=== PATIENT | female | born 1950 | race Hispanic/Latino ===

== ENCOUNTER 2020-06-05 10:45 | Emergency (ER) | payer MEDICARE, OTHER ==
[~2020-06-05] VITALS: Ht 160 cm; Wt 74.8 kg
[2020-06-05] MEDS ORDERED: KETOROLAC TROMETHAMINE 30 MG/ML VIAL IM STA (11:08)
[2020-06-05] MEDS ORDERED: DEXAMETHASONE SOD PHOS 10 MG/1 ML VIAL IM ONE (11:15)
[2020-06-05] MEDS ORDERED: HYDROCODONE/APAP 5MG-325MG TAB PO ONE (11:15)
[2020-06-05] MEDS ORDERED: LIDOCAINE 4% PATCH TP SCH (11:15)
--- OUTSIDE RECORDS SUMMARY | 2020-06-05 11:51 | XMS REPORT | Continuity of Care Document ---
Author Author [facility] t Organization [facility] Address [address] [place] [address] Phone Unavailable Care Team Providers Care Expert Witness Name Role Phone Unavailable Unavailable Payers Payer Name Policy Type Policy Number Effective Date Expiration Date S ource Problems This patient has no known problems. Allergies, Adverse Reactions, Alerts Allergy Name Allergy Type Status Severity Reaction(s) Onset Date Inacti ve Date Treating Clinician Comments Source No Known Allergies DA Active U 2018-09-07 00:00:00 [facility] No Known Contrast Allergies DA Active U 2007-08-31 00:00: 00 [facility] No Known Drug Allergies DA Active U 2007-08-31 00:00:00 [facility] No Known Food Allergies DA Active U 2007-08-31 00:00:00 [facility] No Known Other Allergies DA Active U 2007-08-31 00:00:00 [facility] No Known Drug Intolerances DA Active U 2001-12-20 00:00:0 0 [facility] Medications This patient has no known medications. Procedures This patient has no known procedures. Results Test Description Test Time Test Comments Results Result Comments Source GLUBED 2018-09-09 12:07:00 Test Item GLUBED (test code = GLUBED) 175 mg/dL 74-106 H [facility] [id number] 10:32:00* Test Item Value Reference Range Interpretation Comments GLUBED (test code = GLUBED) 169 mg/dL 74-106 H [facility] [id number] 23:27:00* Test Item Value Reference Range Interpretation Comments GLUBED (test code = GLUBED) 145 mg/dL 74-106 H [facility] - MRI BRAIN W/O [id number] 22:29:00 FAX: Khari Chow MD [place]: St: ADM Name: Rita GERSONHARMAN FLORES [facility] : [birth year] Age/S: 67/F [facility] Unit #: [id number] Loc: [address] [address] Phys: Khari Chow MD Acct: [id number] Dis Date: Status: ADM IN PHONE #: [phone] Exam Date: 09/08/2018 1856 FAX #: [phone] Reason: severe L temporal headache; neg esr crp EXAMS: CPT CODE: [id number] MRI BRAIN W/O CONTRAST 89924 REASON FOR EXAM: severe L temporal headache; neg esr crp Exam Order Date: 09/08/2018 2:45 PM Attending M.D.: Khari Chow MD Procedure: - MRI BRAIN W/O CONTRAST Comparison: Noncontrast CT scan of the brain September 07, 2018 FINDINGS: Axial, sagittal, and coronal images of the head were obtained using T1, T2 weighted, inversion recovery, diffusion weighted, and gradient echo sequences. No IV gadolinium was given. The sagittal images show normal pituitary, cerebellum, and brain stem. No evidence of suprasellar mass. The axial T2, inversion recovery, and gradient echo images show no evidence of intra or extra axial mass. T he ventricles, cisterns, and sulci are unremarkable. No evidence of hemorr urfina. Scattered subcentimeter hyperintense foci in the periventricular whi te matter on the inversion recovery images likely represent chronic microv ascular ischemic changes. The cerebellar pontine angle area is within norm al limits. There is no evidence of mass noted. The axial T1 images show no evidence of mass. No evidence of old infarct. The coronal images show normal optic chiasm. IMPRESSION: No acute intracranial process. Specifically no mass effect, hemorrhage, or ischemic event. Cortical atrophy and chronic microvascular ischemic changes are redemonstrated. at 2225 Reported and si gned by: Claudy Sharma MD PAGE 1 Signed Report (CONTINUED) FAX: Khari Chow MD [place]: B St: ADM Name: HARMAN BISHOP [facility] : 1950 Age/S: 67/F [facility] Unit #: [id number] Loc: V.[address] [place] [address] Phys: Khari Chow MD Acct: [id number] Dis Date: Status: ADM IN PHONE #: [phone] Exam Date: 09/08/2018 1856 FAX #: [phone] Reason: severe L temporal headache; neg esr crp EXAMS: CPT CODE: [id number] MRI BRAIN W/O CONTRAST 81738 <Continued> CC: Khari Chow MD Technologist: Reagan Dietrich)(MR) Trnscrd Date/Time/By: 09/08/2018 (2228) : By: [email or web address] Orig Print D/T: S: 09/08/2018 (2231) PAGE 2 Signed Report [id number] 21:22:00* Test Item Value Reference Range Interpretation Comments GLUBED (test code = GLUBED) 150 mg/dL 74-106 H [facility] [id number] 16:33:00* Test Item Value Reference Range Interpretation Comments GLUBED (test code = GLUBED) 181 mg/dL 74-106 H [facility] [id number] 12:43:00* Test Item Value Reference Range Interpretation Comments GLUBED (test code = GLUBED) 128 mg/dL 74-106 H Performed by certified absorption operator at [facility] BASIC METABOLIC [id number] 07:20:00* Test Item Value Reference Range Interpretation Comments SODIUM (test code = NA) 140 mmol/L 136-145 N POTASSIUM (test code = K) 4.3 mmol/L 3.5-5.1 N CHLORIDE (test code = CL) 105.0 mmol/L 98-107 N CARBON DIOXIDE (test code = CO2) 27.0 mmol/L 21-32 N ANION GAP (test code = GAP) 12.3 10-20 N GLUCOSE (test code = GLU) 169 mg/dL 74-106 H BLOOD UREA NITROGEN (test code = BUN) 17 mg/dL 7-18 N GLOMERULAR FILTRATION RATE (test code = GFR) 55 mL/min >=60 Estimated GFR by using Modified MDRD formula.Chronic kidney disease is defined as either kidney damageor GFR <60 mL/min/1.73 m2 for >3 months. CREATININE (test code = CREAT) 1.00 mg/dL 0.55-1.02 N Note change in reference range due to change in reagent. BUN/CREATININE RATIO (test code = BUN/CREA) 17.8 10-20 N CALCIUM (test code = CA) 9.2 mg/dL 8.5-10.1 N LIPID PROFILE (CORONARY RISK)2018-09-08 07:20:00* Test Item Value Reference Range Interpretation Comments TRIGLYCERIDES (test code = TRIG) 54 mg/dL 20-150 N CHOLESTEROL (test code = CHOL) 162 mg/dL 0-200 N CHOLESTEROL/HDL RATIO (test code = CHOLHDL) 2.0 RATIO 0-4.9 N RISK ASSOCIATED WITH CHOL/HDL RATIOS: Risk Male Female1/2 AVERAGE 3.43 3.27AVERAGE 4.97 4.442X AVERAGE 9.55 7.053X AVERAGE 23.39 11.04 REFERENCE VALUE IS RELATED TO RISK LEVELS ASRECOMMENDED BY THE [facility]. HEART, LUNG, AND BLOOD INST. HDL CHOLESTEROL (test code = HDL) 59 mg/dL 40-60 N LIPOPROTEIN LDL (test code = LDL) 105 mg/dL 100-129 N RN PERSONNEL, CONTACT PHYSICIAN IMMEDIATELY IF THIS IS A STROKE, AMI OR CAROTID STENOSIS PATIENT WHEN THE LDL >100 (1ST OCCURENCE, THIS ADMISSION) Reference Interval: mg/dL mmol/L Optimal <100 <2.6Near/above optimal 100-129 2.6- 3.3Borderline High 130-159 3.4-4.1High 160-189 4.1-4.9Very High >=190 >=4.9========= This LDL result is a direct measurement.========= [id number] 07:20:00* Test Item Value Reference Range Interpretation Comments MAGNESIUM (test code = MAG) 1.9 mg/dL 1.8-2.4 N BASIC METABOLIC [id number] 07:12:00* Test Item Value Reference Range Interpretation Comments SODIUM (test code = NA) 140 mmol/L 136-145 N POTASSIUM (test code = K) 4.3 mmol/L 3.5-5.1 N CHLORIDE (test code = CL) 105.0 mmol/L 98-107 N CARBON DIOXIDE (test code = CO2) mmol/L 21-32 ANION GAP (test code = GAP) 10-20 GLUCOSE (test code = GLU) mg/dL 74-106 BLOOD UREA NITROGEN (test code = BUN) mg/dL 7-18 GLOMERULAR FILTRATION RATE (test code = GFR) mL/min >=60 CREATININE (test code = CREAT) mg/dL 0.55-1.02 BUN/CREATININE RATIO (test code = BUN/CREA) 10-20 CALCIUM (test code = CA) mg/dL 8.5-10.1 LIPID PROFILE (CORONARY RISK)2018-09-08 07:12:00* Test Item Value Reference Range Interpretation Comments TRIGLYCERIDES (test code = TRIG) mg/dL 20-150 CHOLESTEROL (test code = CHOL) mg/dL 0-200 CHOLESTEROL/HDL RATIO (test code = CHOLHDL) RATIO 0-4.9 HDL CHOLESTEROL (test code = HDL) mg/dL 40-60 LIPOPROTEIN LDL (test code = LDL) mg/dL 100-129 [id number] 07:12:00* Test Item Value Reference Range Interpretation Comments MAGNESIUM (test code = MAG) mg/dL 1.8-2.4 [id number] 07:09:00* Test Item Value Reference Range Interpretation Comments GLYCOSYLATED HEMOGLOBIN (HA1C) (test code = GLYHGB) 5.9 % HbA1 4. 8-6.0 N ESTIMATED AVERAGE GLUCOSE (test code = EAG) 123 MG/DL CBC W/AUTO [id number] 06:35:00* Test Item Value Reference Range Interpretation Comments WHITE BLOOD CELL (test code = WBC) 4.8 K/mm3 4.5-12.5 N RED BLOOD CELL (test code = RBC) 4.52 mill/mm3 3.7-5.2 N HEMOGLOBIN (test code = HGB) 13.5 gram/dL 11.5-15.5 N HEMATOCRIT (test code = HCT) 41.0 % 36.0-46.0 N MEAN CELL VOLUME (test code = MCV) 90.7 fL 80-98 N MEAN CELL HGB (test code = MCH) 29.9 picogram 27.0-33.0 N MEAN CELL HGB CONCETRATION (test code = MCHC) 32.9 gram/dL 33.0-36. 0 L RED CELL DISTRIBUTION WIDTH (test code = RDW) 13.2 % 11.6-16. 2 N RED CELL DISTRIBUTION WIDTH SD (test code = RDW-SD) 43.6 fL 37 .0-51.0 N PLATELET COUNT (test code = PLT) 269 K/mm3 150-450 N MEAN PLATELET VOLUME (test code = MPV) 10.2 fL 6.7-11.0 N NEUTROPHIL % (test code = NT%) 92.5 % 39.0-69.0 H IMMATURE GRANULOCYTE % (test code = IG%) 0.6 % 0.0-5.0 N LYMPHOCYTE % (test code = LY%) 5.9 % 25.0-55.0 L MONOCYTE % (test code = MO%) 0.8 % 0.0-10.0 N EOSINOPHIL % (test code = EO%) 0.0 % 0.0-5.0 N BASOPHIL % (test code = BA%) 0.2 % 0.0-1.0 N NUCLEATED RBC % (test code = NRBC%) 0.0 % 0-0 N NEUTROPHIL # (test code = NT#) 4.41 K/mm3 1.8-7.7 N IMMATURE GRANULOCYTE # (test code = IG#) 0.03 x10 3/uL 0-0.03 N LYMPHOCYTE # (test code = LY#) 0.28 K/mm3 1.0-5.0 L MONOCYTE # (test code = MO#) 0.04 K/mm3 0-0.8 N EOSINOPHIL # (test code = EO#) 0.00 K/mm3 0.0-0.5 N BASOPHIL # (test code = BA#) 0.01 K/mm3 0.0-0.2 N NUCLEATED RBC # (test code = NRBC#) 0.00 K/mm3 0.0-0.1 N MANUAL DIFF REQUIRED (test code = MDIFF) NO CBC W/AUTO [id number] 06:27:00* Test Item Value Reference Range Interpretation Comments WHITE BLOOD CELL (test code = WBC) K/mm3 4.5-12.5 RED BLOOD CELL (test code = RBC) mill/mm3 3.7-5.2 HEMOGLOBIN (test code = HGB) 13.5 gram/dL 11.5-15.5 N HEMATOCRIT (test code = HCT) 41.0 % 36.0-46.0 N MEAN CELL VOLUME (test code = MCV) fL 80-98 MEAN CELL HGB (test code = MCH) picogram 27.0-33.0 MEAN CELL HGB CONCETRATION (test code = MCHC) gram/dL 33.0-36. 0 RED CELL DISTRIBUTION WIDTH (test code = RDW) % 11.6-16. 2 RED CELL DISTRIBUTION WIDTH SD (test code = RDW-SD) fL 37 .0-51.0 PLATELET COUNT (test code = PLT) K/mm3 150-450 MEAN PLATELET VOLUME (test code = MPV) fL 6.7-11.0 NEUTROPHIL % (test code = NT%) % 39.0-69.0 IMMATURE GRANULOCYTE % (test code = IG%) % 0.0-5.0 LYMPHOCYTE % (test code = LY%) % 25.0-55.0 MONOCYTE % (test code = MO%) % 0.0-10.0 EOSINOPHIL % (test code = EO%) % 0.0-5.0 BASOPHIL % (test code = BA%) % 0.0-1.0 NEUTROPHIL # (test code = NT#) K/mm3 1.8-7.7 LYMPHOCYTE # (test code = LY#) K/mm3 1.0-5.0 MONOCYTE # (test code = MO#) K/mm3 0-0.8 EOSINOPHIL # (test code = EO#) K/mm3 0.0-0.5 BASOPHIL # (test code = BA#) K/mm3 0.0-0.2 SED [id number] 02:35:00* Test Item Value Reference Range Interpretation Comments SED RATE (test code = SEDW) 13 mm/hr 0-20 WINTROBE METHOD: NORMAL RANGE FOR MEN: 0-9 MM/HR WOMAN: 0-20 MM/HR SED RATE [id number] 02:34:00* Test Item Value Reference Range Interpretation Comments [facility] (test code = SEDW) 13 mm/hr 0-20 N [id number] 23:06:00* Test Item Value Reference Range Interpretation Comments TROPONIN-I (test code = TROPI) <0.015 ng/mL 0-0.045 N COMMENTS TO WATCH TECHNICIAN: COLLECT 3 HOURS AFTER PREVIOUS SAMPLE- CT HEAD/BRAIN W/O [id number] 22:53:00 Name: HARMAN BISHOP [facility] : 1950 Age/S: 67 / F [facility] Unit #: [id number] Loc: [place] [address] Phys: Khari Chow MD Acct: [id number] Dis Date: Status: ADM IN PHONE #: [phone] Exam Date: 09/07/2018 1844 FAX #: [phone] Reason: headache EXAMS: CPT CODE: [id number] CT HEAD/BRAIN W/O CONT 48807 HISTORY: headache TECHNIQUE: Noncontrast 2.[address] of the head. Examination acquired within 24 hours of arrival. Automated exposure control for dose reduction. COMPARISON: No study within the past 10 years FINDINGS: No acute hemorrhage. No intracranial mass, mass effect, or midline shift. No CT evidence of acute infarct. Willis-white matter differentiation is preserved. There is cortical atrophy of the cerebrum. No hydrocephalus. No extra-axial fluid collection. Incidental note is made of cavum septum lucidum (normal variant). Visualized paranasal sinuses are hypoplastic. Mastoid air cells and middle ear cavities are clear. There is been prior lens extraction bilaterally. Calvarium and skull base are intact. IMPRESSION: No acute i ntracranial process. Cortical atrophy of the cerebrum. at 2253 Reported and signed by: Claudy Shamra MD CC: Khari Chow MD Technologist:DEYSI VALLADARES, RT(R) CT CTDI: DLP: Trnscb Date/Time: 09/07/2018 (2252) [email or web address] Orig Print D/T: S: 09/07/2018 (604) CTDI: DLP: PAGE 1 Signed Report [id number] 21:14:00* Test Item Value Reference Range Interpretation Comments TROPONIN-I (test code = TROPI) <0.015 ng/mL 0-0.045 N COMMENTS TO WATCH TECHNICIAN: COLLECT 3 HOURS AFTER PREVIOUS [id number] 20:39:00* Test Item Value Reference Range Interpretation Comments GLUBED (test code = GLUBED) 147 mg/dL 74-106 H Performed by certified absorption operator at [facility] [id number] 17:52:00* Test Item Value Reference Range Interpretation Comments GLUBED (test code = GLUBED) 70 mg/dL 74-106 L Performed by certified absorption operator at [facility] HEPATIC FUNCTION [id number] 16:45:00* Test Item Value Reference Range Interpretation Comments TOTAL PROTEIN (test code = PROT) 7.9 gram/dL 6.4-8.2 N ALBUMIN (test code = ALB) 4.0 g/dL 3.4-5.0 N GLOBULIN (test code = GLOB) 3.9 gram/dL 2.7-4.2 N ALBUMIN/GLOBULIN RATIO (test code = A/G) 1.0 0.75-1.50 N BILIRUBIN TOTAL (test code = BILT) 0.50 mg/dL 0.0-1.0 N BILIRUBIN DIRECT (test code = BILD) 0.13 mg/dL 0.0-0.20 N SGOT/AST (test code = AST) 19 IUnit/L 15-37 N SGPT/ALT (test code = ALT) 28 IUnit/L 12-78 N ALKALINE PHOSPHATASE TOTAL (test code = ALKP) 84 IUnit/L 45-117 N Note change in reference range due to change in reagent. C REACTIVE [id number] 16:38:00* Test Item Value Reference Range Interpretation Comments C REACTIVE PROTEIN (test code = CRP) <0.29 mg/dL 0-0.3 N - XR CHEST 1 [id number] 13:52:00 FAX: Jennifer Russ MD [place]: B St: REG Name: HARMAN CA [facility] : [birth year] Age/S: 67/F [facility] Unit #: [id number] Loc: [place] [address] Phys: Jennifer Russ MD Acct: [id number] Dis Date: Status: REG ER PHONE #: [phone] Exam Date: 09/07/2018 1250 FAX #: [phone] Reason: CHEST PAIN EXAMS: CPT CODE: [id number] XR CHEST 1 V 82010 EXAM: Chest X-ray, 1 view; CLINICAL HISTORY: Chest pain; FINDINGS: The lungs are clear, no infiltrates, no edema; no effusions; no pneumothorax; n ormal cardiomediastinal silhouette. IMPRESSION: Normal chest x-ray. at 8212 Reported and signed by: Ryne Lemon M.D. CC: Jennifer Russ MD Technologist: RT CHRIS(Rita) Trnscrd Date/Time/By: 0 09/07/2018 (9310) : By: DianaGRW Orig Print D/T: S: 09/07/2018 (6821) PAGE 1 Signed Report BASIC METABOLIC [id number] 13:46:00* Test Item Value Reference Range Interpretation Comments SODIUM (test code = NA) 140 mmol/L 136-145 N POTASSIUM (test code = K) 3.9 mmol/L 3.5-5.1 N CHLORIDE (test code = CL) 104.0 mmol/L 98-107 N CARBON DIOXIDE (test code = CO2) 29.0 mmol/L 21-32 N ANION GAP (test code = GAP) 10.9 10-20 N GLUCOSE (test code = GLU) 224 mg/dL 74-106 H BLOOD UREA NITROGEN (test code = BUN) 16 mg/dL 7-18 N GLOMERULAR FILTRATION RATE (test code = GFR) 55 mL/min >=60 Estimated GFR by using Modified MDRD formula.Chronic kidney disease is defined as either kidney damageor GFR <60 mL/min/1.73 m2 for >3 months. CREATININE (test code = CREAT) 1.00 mg/dL 0.55-1.02 N Note change in reference range due to change in reagent. BUN/CREATININE RATIO (test code = BUN/CREA) 15.7 10-20 N CALCIUM (test code = CA) 9.3 mg/dL 8.5-10.1 N [id number] 13:46:00* Test Item Value Reference Range Interpretation Comments TROPONIN-I (test code = TROPI) <0.015 ng/mL 0-0.045 N BASIC METABOLIC [id number] 13:37:00* Test Item Value Reference Range Interpretation Comments SODIUM (test code = NA) 140 mmol/L 136-145 N POTASSIUM (test code = K) 3.9 mmol/L 3.5-5.1 N CHLORIDE (test code = CL) 104.0 mmol/L 98-107 N CARBON DIOXIDE (test code = CO2) mmol/L 21-32 ANION GAP (test code = GAP) 10-20 GLUCOSE (test code = GLU) mg/dL 74-106 BLOOD UREA NITROGEN (test code = BUN) mg/dL 7-18 GLOMERULAR FILTRATION RATE (test code = GFR) mL/min >=60 CREATININE (test code = CREAT) mg/dL 0.55-1.02 BUN/CREATININE RATIO (test code = BUN/CREA) 10-20 CALCIUM (test code = CA) mg/dL 8.5-10.1 [id number] 13:37:00* Test Item Value Reference Range Interpretation Comments TROPONIN-I (test code = TROPI) ng/mL 0-0.045 TROPONIN I [id number] 13:30:00* Test Item Value Reference Range Interpretation Comments TROPONIN I RAPID (test code = TROPIRAP) 0.00 ng/mL <0.08 Please Note New Reference Range 0.00-0.079 ng/mL - Negative>or= 0.08 ng/mL - Positive The use of serial sampling and testing protocol is arecommended practice.An elevated troponin level alone is often not sufficient fordiagnosis of myocardial infarction. Troponin results obtained by different assays may vary.Evaluation of the extent of myocardial damage based onincrease of troponin would be valid only if similarmethodology is used. CBC W/O [id number] 13:10:00* Test Item Value Reference Range Interpretation Comments WHITE BLOOD CELL (test code = WBC) 4.9 K/mm3 4.5-12.5 N RED BLOOD CELL (test code = RBC) 4.68 mill/mm3 3.7-5.2 N HEMOGLOBIN (test code = HGB) 13.9 gram/dL 11.5-15.5 N HEMATOCRIT (test code = HCT) 43.0 % 36.0-46.0 N MEAN CELL VOLUME (test code = MCV) 91.9 fL 80-98 N MEAN CELL HGB (test code = MCH) 29.7 picogram 27.0-33.0 N MEAN CELL HGB CONCETRATION (test code = MCHC) 32.3 gram/dL 33.0-36. 0 L RED CELL DISTRIBUTION WIDTH (test code = RDW) 13.5 % 11.6-16. 2 N PLATELET COUNT (test code = PLT) 267 K/mm3 150-450 N MEAN PLATELET VOLUME (test code = MPV) 9.7 fL 6.7-11.0 N CBC W/O [id number] 13:06:00* Test Item Value Reference Range Interpretation Comments WHITE BLOOD CELL (test code = WBC) K/mm3 4.5-12.5 RED BLOOD CELL (test code = RBC) mill/mm3 3.7-5.2 HEMOGLOBIN (test code = HGB) 13.9 gram/dL 11.5-15.5 N HEMATOCRIT (test code = HCT) 43.0 % 36.0-46.0 N MEAN CELL VOLUME (test code = MCV) fL 80-98 MEAN CELL HGB (test code = MCH) picogram 27.0-33.0 MEAN CELL HGB CONCETRATION (test code = MCHC) gram/dL 33.0-36. 0 RED CELL DISTRIBUTION WIDTH (test code = RDW) % 11.6-16. 2 PLATELET COUNT (test code = PLT) K/mm3 150-450 MEAN PLATELET VOLUME (test code = MPV) fL 6.7-11.0
[2020-06-05 12:03] LABS: CLARITY,URINE CLEAR (CLEAR); COLOR,URINE YELLOW (YELLOW); KETONES,URINE NEGATIVE (NEGATIVE); LEUKOCYTE ESTERASE ,URINE SMALL (NEGATIVE); NITRITE,URINE NEGATIVE (NEGATIVE); PROTEIN,URINE DIPSTICK NEGATIVE (NEGATIVE); URINE UROBILINOGEN 0.2 mg/dL (0.2 - 1)
[2020-06-05 12:04] LABS: BILIRUBIN,URINE NEGATIVE (NEGATIVE)
[2020-06-05 12:15] LABS: EPITHELIAL CELLS,URINE RARE /LPF; RBC,URINE 0-5 /HPF (0-5); WBC,URINE (MAN) 0-5 /HPF (0-5)
--- NOTE | 2020-06-05 12:26 | Emergency Department Note ---
History of Present Illnes History of Present Illness Chief Complaint: General Medicine Complaints History of Present Illness This is a 69 year old female Patient in from home with complaints of low back pain that radiates down her right leg to her foot. Patient reports that it started about 10 days ago without known cause. Patient has a history of RA and takes medications from [place] for the pain. Patient ambulatory without assistance. No acute distress noted. 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 Any updates have been documented here. Past Medical History Recent Fever: No Clinical Suspicion of Infectio: No New/Unexplained Change in Ment: No Past Medical History: Hypertension, Diabetes, Anxiety Other Medical History: RA Other Surgery: Previous right hip surgery to remove a "mass" Social History Smoking Cessation: Never Smoker Counseling Performed: No Alcohol Use: None Any Illegal Drug Use: No TB Exposure/Symptoms: No Physically hurt or threatened: No Family History Family history of heart diseas: No Other Any Pre-Existing Lines (PICC,: No Review of Systems Review of Systems Constitutional: Reports no symptoms EENTM: Reports no symptoms Cardiovascular: Reports no symptoms Respiratory: Reports no symptoms Gastrointestinal: Reports no symptoms Genitourinary: Reports no symptoms Musculoskeletal: Reports as per HPI Integumentary: Reports no symptoms Neurological: Reports no symptoms Psychological: Reports no symptoms Endocrine: Reports no symptoms Hematological/Lymphatic: Reports no symptoms Physical Exam Related Data Allergies: Coded Allergies: No Known Allergies (Unverified , 06/05/20) Triage Vital Signs Vital Signs Date Time Temp Pulse Resp B/P (MAP) Pulse Ox O2 Delivery O2 Flow Rate FiO2 06/05/20 11:05 98.1 81 16 134/99 100 Room Air Vital signs reviewed: Yes Physical Exam CONSTITUTIONAL Constitutional: Present well-developed, Present well-nourished HENT HENT: Present normocephalic, Present atraumatic, Present oropharynx clear/moist , Present nose normal HENT L/R: Present left ext ear normal, Present right ext ear normal EYES Eyes: Reports PERRL, Reports conjunctivae normal NECK Neck: Present ROM normal PULMONARY Pulmonary: Present effort normal, Present breath sounds normal CARDIOVASCULAR Cardiovascular: Present regular rhythm, Present heart sounds normal, Present capillary refill normal, Present normal rate GASTROINTESTINAL Abdominal: Present soft, Present nontender, Present bowel sounds normal; Absent tender GENITOURINARY Genitourinary: Present exam deferred SKIN Skin: Present warm, Present dry MUSCULOSKELETAL Musculoskeletal: Present ROM normal, Present tenderness (RIGHT SI JOINT AREA), Present other (NEG SLR, NL DTR'S) NEUROLOGICAL Neurological: Present alert, Present oriented x 3, Present no gross motor or sensory deficits PSYCHOLOGICAL Psychological: Present mood/affect normal, Present judgement normal Results Laboratory Laboratory Laboratory Tests Test 06/05/20 11:12 Urine Color Yellow (YELLOW) Urine Clarity Clear (CLEAR) Urine pH 5.5 (5 - 7) Urine Specific Sharon 1.025 (1.010-1.025) Urine Protein Negative (NEGATIVE) Urine Glucose (UA) Negative (NEGATIVE) Urine Ketones Negative (NEGATIVE) Urine Blood Negative (NEGATIVE) Urine Nitrite Negative (NEGATIVE) Urine Bilirubin Negative (NEGATIVE) Urine Urobilinogen 0.2 mg/dL (0.2 - 1) Urine Leukocyte Esterase Small (NEGATIVE) Urine RBC 0-5 /HPF (0-5) Urine WBC 0-5 /HPF (0-5) Urine Epithelial Cells Rare /LPF (NONE) Urine Bacteria None /HPF (NONE) Lab results reviewed: Yes Imaging Imaging results reviewed: Yes Impressions EXAM: CT Abdomen and Pelvis WITHOUT intravenous contrast INDICATION: ^Stone Protocol, R LBP RAD AROUND, LOOK AT SPINE ALSO ^[id number] ^1129 ^Y. COMPARISON: None. TECHNIQUE: Abdomen and pelvis were scanned utilizing a multidetector helical scanner from the lung base to the pubic symphysis without administration of IV contrast. Coronal and sagittal reformations were obtained. Routine technique was performed. IV CONTRAST: None ORAL CONTRAST: None COMPLICATIONS: None RADIATION DOSE: Total DLP: 716 mGy*cm Dose modulation, iterative reconstruction, and/or weight based adjustment of the mA/kV was utilized to reduce the radiation dose to as low as reasonably achievable. FINDINGS: LOWER THORAX: Multifocal interstitial opacities are noted at the lung bases. HEPATOBILIARY: Liver is diffusely hypoattenuating. No focal hepatic lesions. No biliary ductal dilatation. The gallbladder appears unremarkable. SPLEEN: No splenomegaly. PANCREAS: No focal masses or ductal dilatation. ADRENALS: No adrenal nodules. KIDNEYS/URETERS: Negative for renal colic was. Negative for hydronephrosis or surrounding inflammatory changes. Ureters not dilated. Negative for ureteral stone. PELVIC ORGANS/BLADDER: Urinary bladder is decompressed. Uterus and ovaries are surgically absent. Phleboliths are identified in the pelvis. PERITONEUM / RETROPERITONEUM: No free air or fluid. LYMPH NODES: No lymphadenopathy. VESSELS: Unremarkable. GI TRACT: Negative for obstruction or surrounding inflammatory changes. Normal retrocecal appendix is noted. Numerous diverticuli of the distal descending and sigmoid colon are noted without inflammatory changes or adjacent fluid collection. BONES AND SOFT TISSUES: Multilevel posterior calcified disc bulges are noted. Negative for compression deformity. Multilevel facet arthropathy is noted throughout the lower lumbar spine. Fat-containing umbilical and infraumbilical hernias are noted. IMPRESSION: 1. Negative for urinary tract calculus or hydronephrosis. 2. Moderate to severe multilevel degenerative changes of the lumbar spine are noted with multilevel posterior partially calcified disc bulges and facet arthropathy. 3. Hepatic steatosis. 4. Interstitial opacities at the lung bases probably related to chronic scarring. Acute infection is difficult to exclude given lack of comparison imaging. 5. Uncomplicated colonic diverticulosis. Signed by: Francisco Fitzpatrick MD on 06/05/2020 1:00 PM Assessment & Plan Medical Decision Making MDM LBP/SCIATICA IN 69 Y/O WITHOUT TRAUMA - WILL GET UA AND CT L SPINE/ABD/PELVIS - R/O UTI/PYELO, URETEROLITHIASIS, SPINE FX Reassessment Reassessment improved, dc home, f/u pcp and dr prasanth michael, medrol dose ignacio, lidoderm patches Assessment & Plan Final Impression: (1) Sciatica Depart Disposition: HOME, SELF-CARE Last Vital Signs Date Time Temp Pulse Resp B/P (MAP) Pulse Ox O2 Delivery O2 Flow Rate FiO2 06/05/20 11:05 98.1 81 16 134/99 100 Room Air Medications in the ED Ketorolac Tromethamine 15 mg ONCE STAT IM ; Start 06/05/20 at 11:08; Stop 06/05/20 at 11:19; Status DC Dexamethasone Sodium Phosphate 10 mg ONCE ONCE IM ; Start 06/05/20 at 11:15; Stop 06/05/20 at 11:19; Status DC Acetaminophen/ Hydrocodone Bitart 1 ea ONCE ONCE PO ; Start 06/05/20 at 11:15; Stop 06/05/20 at 11:19; Status DC Lidocaine 1 ea ONCE TP ; Start 06/05/20 at 11:15; Stop 07/05/20 at 11:14 MAGDA ALONSO MD Jun 05, 2020 12:26
--- NOTE | 2020-06-05 13:03 | Diagnostic Imaging Report ---
EXAM: CT Abdomen and Pelvis WITHOUT intravenous contrast INDICATION: ^Stone Protocol, R LBP RAD AROUND, LOOK AT SPINE ALSO ^[id number] ^1130 ^Y. COMPARISON: None. TECHNIQUE: Abdomen and pelvis were scanned utilizing a multidetector helical scanner from the lung base to the pubic symphysis without administration of IV contrast. Coronal and sagittal reformations were obtained. Routine technique was performed. IV CONTRAST: None ORAL CONTRAST: None COMPLICATIONS: None RADIATION DOSE: Total DLP: 716 mGy*cm Dose modulation, iterative reconstruction, and/or weight based adjustment of the mA/kV was utilized to reduce the radiation dose to as low as reasonably achievable. FINDINGS: LOWER THORAX: Multifocal interstitial opacities are noted at the lung bases. HEPATOBILIARY: Liver is diffusely hypoattenuating. No focal hepatic lesions. No biliary ductal dilatation. The gallbladder appears unremarkable. SPLEEN: No splenomegaly. PANCREAS: No focal masses or ductal dilatation. ADRENALS: No adrenal nodules. KIDNEYS/URETERS: Negative for renal colic was. Negative for hydronephrosis or surrounding inflammatory changes. Ureters not dilated. Negative for ureteral stone. PELVIC ORGANS/BLADDER: Urinary bladder is decompressed. Uterus and ovaries are surgically absent. Phleboliths are identified in the pelvis. PERITONEUM / RETROPERITONEUM: No free air or fluid. LYMPH NODES: No lymphadenopathy. VESSELS: Unremarkable. GI TRACT: Negative for obstruction or surrounding inflammatory changes. Normal retrocecal appendix is noted. Numerous diverticuli of the distal descending and sigmoid colon are noted without inflammatory changes or adjacent fluid collection. BONES AND SOFT TISSUES: Multilevel posterior calcified disc bulges are noted. Negative for compression deformity. Multilevel facet arthropathy is noted throughout the lower lumbar spine. Fat-containing umbilical and infraumbilical hernias are noted. IMPRESSION: 1. Negative for urinary tract calculus or hydronephrosis. 2. Moderate to severe multilevel degenerative changes of the lumbar spine are noted with multilevel posterior partially calcified disc bulges and facet arthropathy. 3. Hepatic steatosis. 4. Interstitial opacities at the lung bases probably related to chronic scarring. Acute infection is difficult to exclude given lack of comparison imaging. 5. Uncomplicated colonic diverticulosis. Signed by: Francisco Fitzpatrick MD on 06/05/2020 1:00 PM
[2020-06-05 13:45] VITALS: BP 114/65
== END 2020-06-05 13:49 | disposition home or self-care (01) ==
LOC: ER 10:48
DX: M54.41 Lumbago with sciatica, right side (principal); I10 Essential (primary) hypertension; E11.9 Type 2 diabetes mellitus without complications; M06.9 Rheumatoid arthritis, unspecified; F41.9 Anxiety disorder, unspecified
CPT/HCPCS: 74176; 81001; 87086; 99284; J1100; J1885

== ENCOUNTER 2024-04-25 14:16 | Emergency (ER) | payer MEDICARE ==
[~2024-04-25] VITALS: Ht 142.2 cm; Wt 68.0 kg
[2024-04-25 14:55] VITALS: PULSE 85; RESP 16; TEMP 97.2; O2SAT 100
[2024-04-25] MEDS ORDERED: ATORVASTATIN CA10 MG (15:20)
[2024-04-25] MEDS ORDERED: CEPHALEXIN500 MG (15:20)
[2024-04-25] MEDS ORDERED: METHOTREXATE2.5 MG (15:20)
[2024-04-25] MEDS ORDERED: LOPRESSOR25 MG (15:20)
[2024-04-25] MEDS ORDERED: Magic Mouth Wash PO (15:27)
== END 2024-04-25 15:52 | disposition home or self-care (01) ==
LOC: ER 14:45
DX: K14.0 Glossitis (principal); I10 Essential (primary) hypertension; E11.9 Type 2 diabetes mellitus without complications; M06.9 Rheumatoid arthritis, unspecified; F41.9 Anxiety disorder, unspecified
CPT/HCPCS: 99283